=== PATIENT | male | born 1975 | race Caucasian/White ===

== ENCOUNTER 2017-04-30 12:06 | Emergency (ER) | payer SELFPAY ==
[~2017-04-30] VITALS: Ht 182.9 cm; Wt 85.0 kg
[2017-04-30 12:08] VITALS: BP 142/86; PULSE 122; RESP 24; TEMP 98.9; O2SAT 97
[2017-04-30] MEDS ORDERED: hydrOXYzine HCL 25 MG TAB PO ONE (12:30)
[2017-04-30] MEDS ORDERED: HYDR-3133 PO (12:33)
--- NOTE | 2017-04-30 12:34 | PD ---
HPI Chief Complaint: Psychiatric Symptoms Time Seen by Provider: 12:21 Travel History International Travel<30 days: No Contact w/Intl Traveler<30days: No History of Present Illness HPI 41-year-old man, presents emergency department complaining that he feels like lizards are crawling over him. States that he feels like he saw one on his clothes but then when he woke to disappeared. States symptoms started today. Denies any history of previous similar symptoms. Denies any auditory or other visual hallucinations. Denies any history of mental health problems. Denies any illicit drug use. History Past Medical History Medical History: Denies Significant Hx Social History Alcohol Use: No Tobacco Use: No Allergies-Medications (Allergen,Severity, Reaction): Coded Allergies: No Known Allergies (Unverified , 04/30/17) Review of Systems Except as stated in HPI: all other systems reviewed are Neg Physical Exam Narrative GENERAL: 41-year-old man, little bit anxious, no acute distress. SKIN: Focused skin assessment warm/dry. No rashes lesions or other evidence of infestation or infection. HEAD: Atraumatic. Normocephalic. EYES: Pupils equal and round. No scleral icterus. No injection or drainage. ENT: No nasal bleeding or discharge. Mucous membranes pink and moist. NECK: Trachea midline. No JVD. CARDIOVASCULAR: Regular rate and rhythm. No murmur appreciated. RESPIRATORY: No accessory muscle use. Clear to auscultation. Breath sounds equal bilaterally. GASTROINTESTINAL: Abdomen soft, non-tender, nondistended. Hepatic and splenic margins not palpable. MUSCULOSKELETAL: No obvious deformities. No clubbing. No cyanosis. No edema. NEUROLOGICAL: Awake and alert. No obvious cranial nerve deficits. Motor grossly within normal limits. Normal speech. PSYCHIATRIC: Little bit anxious and bizarre, but no evidence of other delusions , thought blocking, or psychosis. States normal mood without SI or HI. Data Data Last Documented VS Vital Signs Date Time Temp Pulse Resp B/P (MAP) Pulse Ox O2 Delivery O2 Flow Rate FiO2 04/30/17 12:08 98.9 122 24 142/86 (104) 97 Orders Orders Hydroxyzine Hcl (Atarax) (04/30/17 12:30) MDM Medical Decision Making Medical Screen Exam Complete: Yes Emergency Medical Condition: Yes Differential Diagnosis Formication, adverse effect of illicit drug use, infection or infestation, delusional parasitosis, other Narrative Course Medical decision making 41-year-old man who feels like was urgent crawling on him. Suspect formication related to drug use. She denies any illicit drug use. No history of mental health problems. No evidence of other psychosis. We'll try Atarax for the formication symptoms, outpatient follow-up. Abnormal heart rate is noted. Again suspect this could be related to drug use or withdrawal, there is no evidence of infection, or other more sinister underlying etiology. He does not have tremors or other evidence of more severe sedative hypnotic withdrawal. Diagnosis Primary Impression: Psychogenic formication Patient Instructions: General Instructions Additional Instructions: Take Atarax as needed. Follow-up with your primary doctor for not completely well. Return to the emergency department for any new or worsening symptoms. Med/Other Pt SpecificInfo: Prescription(s) given Scripts Hydroxyzine HCl (Hydroxyzine HCl) 25 Mg Tab 25 MG PO TID Y for crawling feeling on skin, #21 TAB 0 Refills Prov: Rafael Fletcher MD 04/30/17 Disposition: 01 DISCHARGE HOME Condition: Stable Rafael Fletcher MD Apr 30, 2017 12:34
== END 2017-04-30 13:46 | disposition home or self-care (01) ==
LOC: NEPE 12:06
DX: F45.8 Other somatoform disorders (principal)
CPT/HCPCS: 99283

== ENCOUNTER 2017-07-23 18:54 | Emergency (ER) | payer SELFPAY ==
[~2017-07-23] VITALS: Ht 182.9 cm; Wt 74.0 kg
[~2017-07-23 18:54] MED LIST: HYDR-3133 PO
[2017-07-23 18:56] VITALS: BP 128/69; PULSE 84; RESP 16; TEMP 98.5; O2SAT 98
[2017-07-23] MEDS ORDERED: ERYTOIN10 LEFT EYE (21:12)
--- NOTE | 2017-07-23 21:17 | PD ---
HPI Chief Complaint: Eye Problems/Injury Time Seen by Provider: 20:37 Travel History International Travel<30 days: No Contact w/Intl Traveler<30days: No Traveled to known affect area: No History of Present Illness HPI This patient complains of left eye redness and irritation. He's had drainage from the eye. Duration one day. It itches. He does not have eye pain or vision loss. No foreign body sensation when blinking. He does not wear contact lenses PFSH Past Medical History Medical History: Denies Significant Hx ?: Not Past Surgical History Surgical History: No Previous Surgery Social History Alcohol Use: No Tobacco Use: Yes (1 PPD) Substance Use: Yes (weed) Allergies-Medications (Allergen,Severity, Reaction): Coded Allergies: No Known Allergies (Unverified , 07/23/17) Reported Meds & Prescriptions Reported Meds & Active Scripts Active Erythromycin Opth Oint 5 Mg/Gm Oint 1 Applic LEFT EYE QID Review of Systems General / Constitutional: No: Fever HENT: No: Headaches Cardiovascular: No: Chest Pain or Discomfort Physical Exam Narrative Right sclerae clear Left sclerae diffusely injected. There is some drainage from the left eye and some crusting of the eyelashes Pupil function is normal Extraocular muscles intact NECK: Symmetrical appearance, midline trachea. No mass or crepitus. Thyroid without enlargement, tenderness, or mass. SKIN: Focused skin assessment reveals no rash or ulcers. Skin is warm and dry. Palpation shows no induration or nodules. Psych: Normal mood and affect. Normal insight and judgment. Data Data Last Documented VS Vital Signs Date Time Temp Pulse Resp B/P (MAP) Pulse Ox O2 Delivery O2 Flow Rate FiO2 07/23/17 18:56 98.5 84 16 128/69 (88) 98 MDM Medical Decision Making Medical Screen Exam Complete: Yes Emergency Medical Condition: Yes Medical Record Reviewed: Yes Differential Diagnosis Conjunctivitis, foreign body, corneal ulcer Narrative Course I have reviewed the patient's electronic medical record. Patient has an infectious conjunctivitis of the left eye. I prescribed some erythromycin ointment Hygiene discussed Diagnosis Primary Impression: Acute conjunctivitis, left eye Qualified Codes: H10.32 - Unspecified acute conjunctivitis, left eye Additional Instructions: The patient was advised to follow up with their physician and return if they worsen. Med/Other Pt SpecificInfo: Prescription(s) given Scripts Erythromycin Opth Oint (Erythromycin Opth Oint) 5 Mg/Gm Oint 1 APPLIC LEFT EYE QID for Infection, #1 TUBE 0 Refills Prov: Derrick Villafuerte MD 07/23/17 Disposition: 01 DISCHARGE HOME Condition: Stable Derrick Villafuerte MD Jul 23, 2017 21:17
== END 2017-07-23 21:24 | disposition home or self-care (01) ==
LOC: NEPD 18:54
DX: H10.32 Unspecified acute conjunctivitis, left eye (principal); F17.200 Nicotine dependence, unspecified, uncomplicated; F12.90 Cannabis use, unspecified, uncomplicated
CPT/HCPCS: 99283